=== PATIENT | female | born 1950 | race Caucasian/White ===

== ENCOUNTER 2022-05-02 15:42 | Inpatient (IN) ==
[2022-05-02] MEDS ORDERED: Metoclopramide 10 MG/2 ML VIAL IVP ONE (18:30)
[2022-05-02] MEDS ORDERED: *HR* FentaNYL (PF) 100 MCG/2 ML VIAL IVP ONE (18:31)
[2022-05-02] MEDS ORDERED: Naloxone 0.4 MG/ML INJ IVP PRN (19:43)
[2022-05-02] MEDS ORDERED: *HR* OxyCODONE Immed Rel 5 MG TABLET PO PRN (19:43)
[2022-05-02] MEDS ORDERED: Acetaminophen 325 MG TABLET PO PRN (19:43)
[2022-05-02] MEDS ORDERED: Ondansetron 4 MG/2 ML VIAL IVP PRN (19:43)
[2022-05-02] MEDS ORDERED: *HR* Promethazine 25 MG/ML VIAL IM PRN (19:43)
[2022-05-02] MEDS ORDERED: Melatonin 3 MG TABLET PO PRN (19:43)
[2022-05-02 19:49] LABS: Basophils % 0.2 %; Eosinophils % 0.3 %; Hematocrit 40.3 % (35.3-44.9); Immature Granulocytes % 0.3 % (0-4); Lymphocytes # 2.5 K/mcL (0.6-4.6); Lymphocytes % 25.6 %; Mean Corpuscular HGB Conc 32.3 g/dL (31.6-35.5); Mean Corpuscular Hemoglobin 29.3 pg (28.0-33.3); Mean Corpuscular Volume 90.8 fL (83.0-100.0); Mean Platelet Volume 10.2 fL (9.4-12.4); Monocytes % 9.9 %; Neutrophils # 6.3 K/mcL (1.6-8.9); Platelet Count 259 K/mcL (140-400); Red Blood Count 4.44 M/mcL (3.82-4.97); Red Cell Distribution Width 14.7 % (11.5-14.5); Segmented Neutrophils % 63.7 %; White Blood Count 9.9 K/mcL (4.3-11.1)
[2022-05-02 20:09] LABS: Calcium 10.2 mg/dL (8.6-10.3); Potassium 3.2 mEq/L (3.5-5.1)
[2022-05-03] MEDS: *HR* HYDROcodone/Acet 5/325 mg TABLET PO PRN ×3 (00:36→15:01)
[2022-05-03 05:17] LABS: Basophils % 0.4 %; Eosinophils # 0.1 K/mcL (0.0-0.6); Eosinophils % 0.8 %; Hematocrit 40.3 % (35.3-44.9); Immature Granulocytes % 0.4 % (0-4); Lymphocytes # 2.7 K/mcL (0.6-4.6); Lymphocytes % 32.2 %; Mean Corpuscular HGB Conc 32.3 g/dL (31.6-35.5); Mean Corpuscular Hemoglobin 29.5 pg (28.0-33.3); Mean Corpuscular Volume 91.4 fL (83.0-100.0); Mean Platelet Volume 10.2 fL (9.4-12.4); Monocytes % 11.5 %; Neutrophils # 4.6 K/mcL (1.6-8.9); Platelet Count 239 K/mcL (140-400); Red Blood Count 4.41 M/mcL (3.82-4.97); Red Cell Distribution Width 14.8 % (11.5-14.5); Segmented Neutrophils % 54.7 %; White Blood Count 8.4 K/mcL (4.3-11.1)
[2022-05-03 05:21] LABS: INR 1.1; Prothrombin Time 12.5 Seconds (9.4-12.1)
[2022-05-03] MEDS: *HR* Heparin 5,000 UNIT/ML VIAL SQ SCH ×3 (05:23→21:54)
[2022-05-03 05:37] LABS: Calcium 9.8 mg/dL (8.6-10.3); Potassium 3.5 mEq/L (3.5-5.1)
[2022-05-03] MEDS ORDERED: Bupivacaine/EPI 1:200k 0.25% 50 ML VIAL ONE (15:06)
[2022-05-03] MEDS ORDERED: Famotidine 20 MG/2 ML VIAL IVP ONE (15:23)
[2022-05-03] MEDS ORDERED: Acetaminophen IV 1,000 MG/100 ML BAG IVPB ONE ×2 (15:24→19:02)
[2022-05-03] MEDS ORDERED: *HR* HYDROcodone/Acet 10/325 mg TABLET PO PRN (15:25)
[2022-05-03] MEDS ORDERED: *HR* Midazolam HCl 2 MG/2 ML VIAL ONE (16:34)
[2022-05-03] MEDS ORDERED: *HR* FentaNYL (PF) 100 MCG/2 ML VIAL ONE (16:34)
[2022-05-03] MEDS ORDERED: Ropivacaine/PF 0.5% 30 ML VIAL ONE (16:36)
[2022-05-03] MEDS ORDERED: Lidocaine -MPF 2% 2 ML VIAL ONE (16:43)
[2022-05-03] MEDS ORDERED: Ondansetron 4 MG/2 ML VIAL ONE (16:43)
[2022-05-03] MEDS ORDERED: *HR* Propofol 200 MG/20 ML VIAL IVP ONE (16:43)
[2022-05-03] MEDS ORDERED: Ringers Solution, Lactated 1,000 ML IVC SCH (17:00)
[2022-05-03] MEDS ORDERED: *HR* HYDROMORPHONE 2 MG/ML VIAL ONE (17:36)
[2022-05-03] MEDS ORDERED: *HR* Promethazine 25 MG/ML VIAL IM PRN (19:02)
[2022-05-03] MEDS ORDERED: Naloxone 0.4 MG/ML INJ IVP PRN (19:02)
[2022-05-03] MEDS ORDERED: Ondansetron 4 MG/2 ML VIAL IVP PRN (19:02)
[2022-05-04] MEDS ORDERED: CeFAZolin 2,000 MG/120 ML BAG IVPB SCH ×2
[2022-05-04] MEDS: *HR* Heparin 5,000 UNIT/ML VIAL SQ SCH ×3 (05:26→21:18)
[2022-05-04] MEDS ORDERED: Ipratropium/Albuterol Neb 3 ML IH PRN (08:26)
[2022-05-04] MEDS: *HR* HYDROcodone/Acet 5/325 mg TABLET PO PRN ×2 (09:52→17:43)
[2022-05-04] MEDS: Multivit/Ca/Min/Fe/FA 1 TAB TABLET PO SCH (09:57)
[2022-05-04] MEDS: Topiramate 25 MG TABLET PO SCH ×2 (09:57→19:52)
[2022-05-04] MEDS: Cholecalciferol (D-3) 1,000 UNIT (25MCG) TABLET PO SCH (09:57)
[2022-05-04] MEDS: Loratadine 10 MG TABLET PO SCH (09:58)
[2022-05-04] MEDS: Ketotifen Fumarate [Eye Itch Relief] 5 ML Drops OP SCH ×2 (10:02→21:17)
[2022-05-04] MEDS: Valsartan 80 MG TABLET PO SCH (10:02)
[2022-05-04] MEDS: hydroCHLOROthiazide 25 MG TABLET PO SCH (10:06)
[2022-05-04] MEDS: *HR* HYDROcodone/Acet 10/325 mg TABLET PO PRN ×2 (13:10→21:23)
[2022-05-04] MEDS: QUEtiapine Fumarate 100 MG TABLET PO SCH (19:52)
[2022-05-04] MEDS: Melatonin 3 MG TABLET PO PRN (19:52)
[2022-05-04] MEDS: Acetaminophen 325 MG TABLET PO PRN (21:17)
[2022-05-05 02:18] LABS: Basophils % 0.4 %; Eosinophils % 0.4 %; Hematocrit 38.1 % (35.3-44.9); Hemoglobin 12.2 g/dL (11.5-15.4); Immature Granulocytes % 0.1 % (0-4); Lymphocytes % 38.6 %; Mean Corpuscular Hemoglobin 29.1 pg (28.0-33.3); Mean Corpuscular Volume 90.9 fL (83.0-100.0); Mean Platelet Volume 10.5 fL (9.4-12.4); Monocytes # 0.8 K/mcL (0.0-1.3); Monocytes % 9.7 %; Platelet Count 230 K/mcL (140-400); Red Blood Count 4.19 M/mcL (3.82-4.97); Red Cell Distribution Width 14.7 % (11.5-14.5); Segmented Neutrophils % 50.8 %; White Blood Count 7.8 K/mcL (4.3-11.1)
[2022-05-05 02:35] LABS: BUN/Creatinine Ratio 18 (6-26); Blood Urea Nitrogen 19 mg/dL (8-23); Carbon Dioxide 25 mEq/L (23-29); Chloride 106 mEq/L (98-107); Glucose 134 mg/dL (70-105); Osmolality,Calculated 292 (280-300); Sodium 139 mEq/L (136-145); eGFR For African Americans > 60 (> 60); eGFR For Non-African Americans 52 (> 60)
[2022-05-05 02:46] LABS: Thyroid Stimulating Hormone 1.732 mcIU/mL (0.340-5.600)
[2022-05-05] MEDS: *HR* HYDROcodone/Acet 10/325 mg TABLET PO PRN ×3 (03:37→15:46)
[2022-05-05] MEDS: *HR* Heparin 5,000 UNIT/ML VIAL SQ SCH ×3 (06:05→21:09)
[2022-05-05] MEDS: Cholecalciferol (D-3) 1,000 UNIT (25MCG) TABLET PO SCH (08:19)
[2022-05-05] MEDS: Topiramate 25 MG TABLET PO SCH ×2 (08:19→19:49)
[2022-05-05] MEDS: Multivit/Ca/Min/Fe/FA 1 TAB TABLET PO SCH (08:19)
[2022-05-05] MEDS: Loratadine 10 MG TABLET PO SCH (08:20)
[2022-05-05] MEDS: Valsartan 80 MG TABLET PO SCH (08:20)
[2022-05-05] MEDS: hydroCHLOROthiazide 25 MG TABLET PO SCH (08:20)
[2022-05-05] MEDS: Ketotifen Fumarate [Eye Itch Relief] 5 ML Drops OP SCH ×2 (08:23→19:50)
[2022-05-05] MEDS: Acetaminophen 325 MG TABLET PO PRN (19:48)
[2022-05-05] MEDS: QUEtiapine Fumarate 100 MG TABLET PO SCH (19:49)
[2022-05-05] MEDS: Melatonin 3 MG TABLET PO PRN (19:49)
[2022-05-06] MEDS: *HR* HYDROcodone/Acet 10/325 mg TABLET PO PRN ×3 (00:28→15:46)
[2022-05-06] MEDS: *HR* Heparin 5,000 UNIT/ML VIAL SQ SCH (05:08)
[2022-05-06 07:08] VITALS: O2SAT 97
[2022-05-06 07:25] LABS: Basophils % 0.2 %; Eosinophils # 0.1 K/mcL (0.0-0.6); Eosinophils % 1.4 %; Hematocrit 39.4 % (35.3-44.9); Hemoglobin 12.4 g/dL (11.5-15.4); Immature Granulocytes % 0.4 % (0-4); Lymphocytes # 2.8 K/mcL (0.6-4.6); Lymphocytes % 49.4 %; Mean Corpuscular HGB Conc 31.5 g/dL (31.6-35.5); Mean Corpuscular Volume 92.1 fL (83.0-100.0); Mean Platelet Volume 10.6 fL (9.4-12.4); Monocytes # 0.5 K/mcL (0.0-1.3); Monocytes % 9.4 %; Neutrophils # 2.2 K/mcL (1.6-8.9); Platelet Count 226 K/mcL (140-400); Red Blood Count 4.28 M/mcL (3.82-4.97); Red Cell Distribution Width 15.1 % (11.5-14.5); Segmented Neutrophils % 39.2 %; White Blood Count 5.7 K/mcL (4.3-11.1)
[2022-05-06 07:56] LABS: BUN/Creatinine Ratio 14 (6-26); Blood Urea Nitrogen 14 mg/dL (8-23); Calcium 9.4 mg/dL (8.6-10.3); Carbon Dioxide 29 mEq/L (23-29); Chloride 106 mEq/L (98-107); Glucose 91 mg/dL (70-105); Osmolality,Calculated 292 (280-300); Sodium 141 mEq/L (136-145); eGFR For African Americans > 60 (> 60); eGFR For Non-African Americans 55 (> 60)
[2022-05-06] MEDS: Cholecalciferol (D-3) 1,000 UNIT (25MCG) TABLET PO SCH (09:13)
[2022-05-06] MEDS: Topiramate 25 MG TABLET PO SCH (09:13)
[2022-05-06] MEDS: Multivit/Ca/Min/Fe/FA 1 TAB TABLET PO SCH (09:13)
[2022-05-06] MEDS: Valsartan 80 MG TABLET PO SCH (09:13)
[2022-05-06] MEDS: hydroCHLOROthiazide 25 MG TABLET PO SCH (09:14)
[2022-05-06] MEDS: Loratadine 10 MG TABLET PO SCH (09:14)
[2022-05-06] MEDS: Ketotifen Fumarate [Eye Itch Relief] 5 ML Drops OP SCH (10:00)
[2022-05-06 11:15] VITALS: PULSE 78; TEMP 98.5
[2022-05-06 15:39] VITALS: BP 145/70
== END 2022-05-06 17:33 | disposition home health service (06) | DRG 494 ==
LOC: 4WAOSI 15:42 → EMEROOARM 15:42 → SUATTDRO 19:42 → 4WAOSI 20:26
PROVIDERS: ADMIT Internal Medicine; ATTEND Pharmacist